=== PATIENT | male | born 1935 | race Caucasian/White ===

== ENCOUNTER 2016-12-03 15:06 | Inpatient (IN) | payer MEDICARE ==
[~2016-12-03] VITALS: Ht 182.9 cm; Wt 66.4 kg
[~2016-12-03 15:06] MED LIST: ASPI325T32 PO; FOLI-49 PO; HYDR-3498 PO; LISI-313 PO; METO-429 PO; PANT40TA4 PO; THIA100T56 PO
[2016-12-03 15:50] VITALS: Ht 182.9 cm; Wt 66.4 kg
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
[2016-12-03] MEDS ORDERED: PIPER-TAZO 3.375 GM IV (PMX) 100 ML IVPB STA (16:43)
[2016-12-03] MEDS ORDERED: VANCOMYCIN 1 GM (PMX) 250 ML IVPB ONE (17:00)
[2016-12-03] MEDS ORDERED: ZOLP5TAB PO (17:08)
[2016-12-03] MEDS ORDERED: ASPI325T4 PO (17:08)
[2016-12-03] MEDS ORDERED: DOCU-144 PO (17:09)
[2016-12-03] MEDS ORDERED: CRAN425C PO (17:11)
[2016-12-03] MEDS ORDERED: DULR PR (17:11)
[2016-12-03] MEDS ORDERED: FER325 PO (17:12)
[2016-12-03] MEDS ORDERED: FLEETPED PR (17:12)
[2016-12-03] MEDS ORDERED: TAMS-14 PO (17:13)
[2016-12-03] MEDS ORDERED: FOLI-49 PO (17:13)
[2016-12-03] MEDS ORDERED: LISI-313 PO (17:15)
[2016-12-03] MEDS ORDERED: METO-429 PO (17:16)
[2016-12-03] MEDS ORDERED: ENOX40DI14 SC (17:16)
[2016-12-03 17:17] LABS: BASOPHILS % 0.5 % (0.0-2.0); EOSINOPHILS # 0.1 10^3/ul (0.0-0.5); EOSINOPHILS % 0.7 % (0.0-7.0); HEMATOCRIT 34.8 % (42.0-52.0); HEMOGLOBIN 11.6 g/dl (14.0-18.0); LYMPHOCYTES # 0.9 10^3/ul (0.8-2.9); LYMPHOCYTES % 12.6 % (15.0-51.0); MEAN CORPUSCULAR HGB CONC 33.3 g/dl (32.0-37.0); MEAN CORPUSCULAR VOLUME 101.9 fl (82.0-101.0); MEAN PLATELET VOLUME 8.3 fl (7.4-10.4); MONOCYTE # 0.7 10^3/ul (0.3-0.9); MONOCYTES % 9.8 % (0.0-11.0); NEUTROPHIL # 5.6 10^3/ul (1.6-7.5); NEUTROPHILS % 76.4 % (39.0-77.0); PLATELET COUNT 179 10^3/UL (140-440); RED BLOOD COUNT 3.41 10^6/ul (4.70-6.10); RED CELL DISTRIBUTION WIDTH 15.6 % (11.5-14.5); UNCORRECTED WBC 7.4 10^3/ul (4.8-10.8); WHITE BLOOD COUNT 7.4 10^3/ul (4.8-10.8)
[2016-12-03] MEDS ORDERED: MAGN400O4 PO (17:17)
[2016-12-03] MEDS ORDERED: MULT-105 PO (17:17)
[2016-12-03] MEDS ORDERED: HYDR-906 PO (17:18)
[2016-12-03] MEDS ORDERED: THIA100T10 PO (17:19)
[2016-12-03] MEDS ORDERED: PANT40TA3 PO (17:19)
[2016-12-03] MEDS ORDERED: ACET325T33 PO (17:20)
[2016-12-03] MEDS ORDERED: TYL500 PO (17:24)
[2016-12-03] MEDS ORDERED: morphine 4 MG/ML VIAL IV STA (17:24)
[2016-12-03 17:25] LABS: ALBUMIN 3.2 g/dl (3.3-4.9); INR 0.97; PROTIME 12.9 Sec (12.2-14.2)
[2016-12-03] MEDS ORDERED: CYAN100080 PO (17:25)
[2016-12-03 17:26] LABS: PARTIAL THROMBOPLASTIN TIME 34.8 Sec (25.0-35.0); POTASSIUM 4.3 mmol/L (3.5-5.1)
[2016-12-03] MEDS ORDERED: ASCO500C7 PO (17:26)
[2016-12-03 17:28] LABS: ALBUMIN/GLOBULIN RATIO 0.86; BILIRUBIN,INDIRECT 0.4 mg/dl (0-1.1); BILIRUBIN,TOTAL 0.4 mg/dl (0.2-1.3); CREATININE 0.8 mg/dl (0.61-1.24); TOTAL PROTEIN 6.9 g/dl (6.1-8.1)
[2016-12-03 17:29] LABS: CALCIUM 8.7 mg/dl (8.4-10.2)
[2016-12-03 17:30] LABS: CONDITION 1; LH ANALYZER COMMENTS 1
[2016-12-03] MEDS ORDERED: SOD CHLORIDE 0.9% 1,000 ML IV ONE (17:30)
--- NOTE | 2016-12-03 18:24 | RADRPT ---
PROCEDURE: XR Elbow. CLINICAL INDICATION: Left elbow pain, infection TECHNIQUE: AP, lateral and oblique views of the left elbow performed. COMPARISON: Radiographs of the left elbow November 06, 2016 FINDINGS: There is wire and cerclage fixation of the proximal ulna. The fracture line appears somewhat more p rominent compared to the previous study. There is diffuse soft tissue swelling identified. There i s a joint effusion. There is no new fracture. IMPRESSION: 1. Extensive posterior soft tissue swelling adjacent to the olecranon fracture which is traversed by nasreen and wire fixation. The previously seen olecranon fracture demonstrates some increased bone reso rption and diastases along the margins, with ongoing infection/osteomyelitis not excluded. RPTAT: UU .Cole Magallanes MD, Date Time Electronically viewed and signed by .Cole Magallanes MD, on 12/03/2016 18:24 .K/
[2016-12-03 22:24] VITALS: PULSE 94; TEMP 98
[2016-12-03 22:51] VITALS: BP 150/91; RESP 20
[2016-12-04] MEDS ORDERED: VANCOMYCIN IV PER PHARMACY XX SCH
[2016-12-04 00:30] VITALS: BP 137/76; RESP 17
[2016-12-04] MEDS: PIPER-TAZO 3.375 GM IV (PMX) 100 ML IVPB SCH ×4 (00:55→17:21)
[2016-12-04 06:01] LABS: BASOPHILS % 0.6 % (0.0-2.0); EOSINOPHILS # 0.1 10^3/ul (0.0-0.5); EOSINOPHILS % 1.9 % (0.0-7.0); HEMATOCRIT 33.2 % (42.0-52.0); HEMOGLOBIN 11.4 g/dl (14.0-18.0); LYMPHOCYTES # 0.9 10^3/ul (0.8-2.9); LYMPHOCYTES % 15.5 % (15.0-51.0); MEAN CORPUSCULAR HEMOGLOBIN 34.4 pg (29.0-33.0); MEAN CORPUSCULAR HGB CONC 34.3 g/dl (32.0-37.0); MEAN CORPUSCULAR VOLUME 100.3 fl (82.0-101.0); MEAN PLATELET VOLUME 8.6 fl (7.4-10.4); MONOCYTE # 0.6 10^3/ul (0.3-0.9); MONOCYTES % 10.9 % (0.0-11.0); NEUTROPHIL # 4.2 10^3/ul (1.6-7.5); NEUTROPHILS % 71.1 % (39.0-77.0); PLATELET COUNT 174 10^3/UL (140-440); RED BLOOD COUNT 3.31 10^6/ul (4.70-6.10); RED CELL DISTRIBUTION WIDTH 15.8 % (11.5-14.5); UNCORRECTED WBC 5.9 10^3/ul (4.8-10.8); WHITE BLOOD COUNT 5.9 10^3/ul (4.8-10.8)
[2016-12-04 06:05] LABS: POTASSIUM 3.9 mmol/L (3.5-5.1)
[2016-12-04 06:06] LABS: CREATININE 0.72 mg/dl (0.61-1.24)
[2016-12-04 06:07] LABS: ALBUMIN/GLOBULIN RATIO 0.88; BILIRUBIN,INDIRECT 0.4 mg/dl (0-1.1); BILIRUBIN,TOTAL 0.4 mg/dl (0.2-1.3); TOTAL PROTEIN 6.4 g/dl (6.1-8.1)
[2016-12-04 06:08] LABS: CALCIUM 8.4 mg/dl (8.4-10.2)
[2016-12-04] MEDS: ACETAMINOPHEN 325 MG TAB PO PRN ×2 (06:50→16:31)
[2016-12-04 06:54] LABS: CONDITION 1; LH ANALYZER COMMENTS 1
[2016-12-04 07:11] VITALS: BP 117/70; RESP 18
[2016-12-04] MEDS: METOPROLOL 50 MG TAB PO SCH ×2 (09:39→20:40)
[2016-12-04] MEDS: LISINOPRIL 5 MG TAB PO SCH ×2 (09:40→20:40)
[2016-12-04] MEDS: VANCOMYCIN 1.25 GM in SOD CHLORIDE 0.9% 250 ML IVPB SCH (09:48)
--- NOTE | 2016-12-04 13:37 | HP ---
Date/Time of Note Date/Time of Note DATE: 12/04/16 TIME: 13:23 Assessment/Plan VTE Prophylaxis VTE Prophylaxis Intervention: other Lines/Catheters IV Catheter Type (from Nrs): Saline Lock Urinary Cath still in place: No Assessment/Plan Assessment/Plan sp left elbow - ORIF Infected hardwire Left elbow fracture HPI/ROS Admit Date/Time Admit Date/Time Dec 03, 2016 at 19:31 Hx of Present Illness eft elbow ORIF surgical site w/ drainage HPI 81 yo M history of multiple medical problems including atrial fibrillation, hypertension, BPH, anemia, ETOH abuse, had left elbow ORIF on 11/06/2016 presents with concern for left elbow infection for the last 5 days. Patient reports noticing increased pain over his left elbow since November 28 2016 , when the anatoliy were removed. However yesterday he reports that he noticed some discharge and per the nursing alert note patient's left upper look more erythematous as well as swollen. There is some report of purulent discharge. Patient transferred for evaluation of the surgical site. Patient denies no new trauma and does not report any fevers or chills. No limitations in his left hand, no numbness tingling or weakness. ROS All systems reviewed and are negative except as per history of present illness. Medications Home Meds Reported Medications Ascorbic Acid* (Vitamin C*) 500 Mg Capsule.sa, 500 MG PO DAILY, CAP 12/03/16 Cyanocobalamin* (Vitamin B-12*) 1,000 Mcg Tablet.sa, 1000 MCG PO DAILY, TAB 12/03/16 Acetaminophen* (Tylenol*) 500 Mg Tab, 1000 MG PO Q4H Y for PAIN 4-6/10, TAB 12/03/16 Acetaminophen* (Tylenol*) 325 Mg Tablet, 650 MG PO Q4H Y for MILD PAIN LEVEL 1-3 , TAB FOR FEVER 100 & ABOVE 12/03/16 Thiamine* (Thiamine*) 100 Mg Tablet, 100 MG PO DAILY, TAB 12/03/16 Pantoprazole* (Protonix*) 40 Mg Tablet.dr, 40 MG PO DAILY, TAB 12/03/16 Multivitamin with Minerals (Multivitamins with Minerals) 1 Each Tablet, 1 EACH PO DAILY, TAB 12/03/16 Magnesium Hydroxide* (Milk Of Magnesia*) 400 Mg/5 Ml Oral.susp, 30 ML PO Q24H Y for PRN, ML 1/14/17 Enoxaparin Sodium* (Lovenox*) 40 Mg/0.4 Ml Syringe, 40 MG SC DAILY, SYR 12/03/16 Metoprolol Tartrate* (Lopressor*) 50 Mg Tab, 50 MG PO BID, #60 TAB HOLD IF SBP BELOW 110 OR HR BELOW 60 12/03/16 Lisinopril* (Lisinopril*) 5 Mg Tablet, 5 MG PO BID, #30 TAB HOLD IF SBP BELOW 110 OR HR BELOW 60 12/03/16 Folic Acid* (Folic Acid*) 1 Mg Tablet, 1 MG PO DAILY, TAB 12/03/16 Tamsulosin Hcl* (Flomax*) 0.4 Mg Cap.er.24h, 0.4 MG PO HS, CAP 12/03/16 Sod Phosphate/Sod Biphosphate* (Fleet* Enema Pediatric) 66.6 Ml Soln, 66.6 ML [place] Q2DAYS Y for CONSTIPATION, ENEMA 12/03/16 Ferrous Sulfate* (Ferrous Sulfate*) 325 Mg Tabec, 325 MG PO DAILY, TAB 12/03/16 Bisacodyl* (Bisacodyl*) 10 Mg Supp, 10 MG [place] Q24H Y for PRN, SUPP 12/03/16 Cranberry Extract (Cranberry) 425 Mg Capsule, 425 MG PO DAILY, CAP 12/03/16 Docusate Sodium* (Colace*) 100 Mg Capsule, 200 MG PO QHS, #60 CAP 12/03/16 Aspirin* (Aspirin*) 325 Mg Tablet, 325 MG PO DAILY, TAB 12/03/16 Zolpidem Tartrate* (Ambien*) 5 Mg Tablet, 5 MG PO QHS Y for INSOMNIA, #30 TAB 12/03/16 Discontinued Reported Medications Hydrocodone/Acetaminophen ([place] 5-325 Tablet) 1 Each Tablet, 1 EACH PO Q3H Y for PAIN 7-910, TAB 12/03/16 Discontinued Scripts Aspirin (Aspir-Jyotsna) 325 Mg Tablet.dr, 325 MG PO DAILY for 7 Days Prov:CAMILLE BRIONES 11/08/16 Thiamine* (Vitamin B-1*) 100 Mg Tablet, 100 MG PO DAILY for 30 Days, TAB Prov:CAMILLE BRIONES 11/08/16 Pantoprazole* (Pantoprazole*) 40 Mg Tablet.dr, 40 MG PO DAILY@06 for 30 Days Prov:PERFECTO BRIONESBIR 11/08/16 Metoprolol Tartrate* (Lopressor*) 50 Mg Tab, 50 MG PO BID for 30 Days, TAB Prov:ANSELMOCAMILLE 11/08/16 Lisinopril* (Lisinopril*) 5 Mg Tablet, 5 MG PO BID for 30 Days, TAB Prov:ANSELMOCAMILLE 11/08/16 Hydrocodone Bit-Acetaminophen (Hydrocodone Bit-APAP) 5-325MG Tablet, 1 TAB PO Q6H Y for PAIN, #20 TAB Prov:PERFECTO BRIONESBIR 11/08/16 Folic Acid* (Folic Acid*) 1 Mg Tablet, 1 MG PO DAILY for 30 Days, TAB Prov:ANSELMOCAMILLE 11/08/16 Allergies Allergies: Coded Allergies: No Known Allergy (Unverified , 12/03/16) PMH/Family/Social Past Medical History PMhx/Soc atrial fibrillation, hypertension, BPH, anemia, EtOH abuse, had left elbow ORIF on 11/06/2016 History of Surgery: Yes (Left leg (2013), ulcer repair (1997), LTHR, ) Anesthesia Reaction: No Hx Neurological Disorder: No Hx Respiratory Disorders: Yes (asthma) Hx Cardiac Disorders: Yes (HTN, CAD, AFIB) Hx Psychiatric Problems: No Hx Miscellaneous Medical Probl: Yes (BPH, UTI,) Hx Alcohol Use: No Hx Substance Use: No Hx Tobacco Use: No Smoking Status: Never smoker FmHx Family History: No coronary disease, No diabetes, No other Social History Smoking Status: Heavy tobacco smoker Exam/Review of Systems Vital Signs Vitals Vital Signs Date Time Temp Pulse Resp B/P Pulse Ox O2 Delivery O2 Flow Rate FiO2 12/04/16 07:11 98.0 110 18 117/70 96 12/04/16 00:30 Room Air Intake and Output 12/03/16 12/03/16 12/04/16 15:00 23:00 07:00 Intake Total 450 ml Output Total 700 ml Balance -250 ml Exam Constitutional: alert, oriented Psych: nl mood/affect ENMT: nl external ears & nose Neck: non-tender Respiratory: clear to auscultation Cardiovascular: nl pulses Gastrointestinal: non-tender, soft Musculoskeletal: other (Extremities: L elbow with + swelling, warmth, erythema over surgical site, steri strips in place, some mild discharge noted over dehisced incision site. no crepitus, no lesions. 1+ radial pulse. ) Extremities: normal pulses Skin: other Lymph: nontender Labs Result Diagram: 12/04/1644112/04/16441 Medications Medications Current Medications Acetaminophen (Tylenol Tab) 650 mg Q6H PRN PO PAIN AND OR ELEVATED TEMP Last administered on 12/04/16 06:50; Admin Dose 650 MG; Start 12/04/16 at 00:00 Tamsulosin HCl (Flomax) 0.4 mg HS PO ; Start 12/04/16 at 21:00 Lisinopril (Zestril) 5 mg BID PO Last administered on 12/04/16 09:40; Admin Dose 5 MG; Start 12/04/16 at 09:00 Metoprolol Tartrate 50 mg 50 mg BID PO Last administered on 12/04/16 09:39; Admin Dose 50 MG; Start 12/04/16 at 09:00 Piperacillin Sod/ Tazobactam Sod 100 ml @ 200 mls/hr Q6 IVPB Last administered on 12/04/16 06:02; Admin Dose 200 MLS/HR; Start 12/04/16 at 00:00 Vancomycin HCl/ Sodium Chloride (Vancocin/NS) 250 ml @ 83.333 mls/ hr Q24H IVPB Last administered on 12/04/16 09:48; Admin Dose 83.333 MLS/HR; Start at 10:00 Procedures Procedures XR L elbow: IMPRESSION: 1. Extensive posterior soft tissue swelling adjacent to the olecranon fracture which is traversed by nasreen and wire fixation. The previously seen olecranon fracture demonstrates some increased bone resorption and diastases along the margins, with ongoing infection/osteomyelitis not excluded. LAB INTERPRETATION: Labs remarkable for elevated ESR and CRP. Mild anemia which is likely chronic. CAMILLE BRIONES Dec 04, 2016 13:34
[2016-12-04 19:54] VITALS: BP 126/72; RESP 20
[2016-12-04] MEDS: TAMSULOSIN (SR) 0.4 MG CAP PO SCH (20:38)
[2016-12-04] MEDS: HYDROCODONE/APAP (5/325) TAB PO PRN (20:39)
[2016-12-05] MEDS: PIPER-TAZO 3.375 GM IV (PMX) 100 ML IVPB SCH ×5 (00:31→23:43)
[2016-12-05] MEDS: ACETAMINOPHEN 325 MG TAB PO PRN (01:07)
[2016-12-05 07:43] VITALS: BP 127/69; RESP 18
[2016-12-05] MEDS: BACITRACIN/POLYMYXIN 28.35 GM OINT TOP SCH ×3 (09:00→21:37)
[2016-12-05] MEDS: METOPROLOL 50 MG TAB PO SCH ×2 (09:13→21:37)
[2016-12-05] MEDS: LISINOPRIL 5 MG TAB PO SCH ×2 (09:13→21:37)
[2016-12-05] MEDS: VANCOMYCIN 1.25 GM in SOD CHLORIDE 0.9% 250 ML IVPB SCH (10:25)
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
--- NOTE | 2016-12-05 14:22 | CONS ---
Date/Time of Note Date/Time of Note DATE: 12/05/16 TIME: 14:22 Assessment/Plan Assessment/Plan Additional Assessment/Plan [id number] Consultation Date/Type/Reason Admit Date/Time Dec 03, 2016 at 19:31 Initial Consult Date Exam/Review of Systems Vital Signs Vitals Vital Signs Date Time Temp Pulse Resp B/P Pulse Ox O2 Delivery O2 Flow Rate FiO2 12/05/16 07:43 98.2 74 18 127/69 95 12/04/16 00:30 Room Air Intake and Output 12/04/16 12/04/16 12/05/16 15:00 23:00 07:00 Intake Total 970 ml 200 ml Output Total 450 ml 800 ml Balance 520 ml -600 ml Results Result Diagram: 12/04/16 0442 12/04/16441 Medications Medications Current Medications Acetaminophen (Tylenol Tab) 650 mg Q6H PRN PO PAIN AND OR ELEVATED TEMP Last administered on 12/05/16 01:07; Admin Dose 650 MG; Start 12/04/16 at 00:00 Tamsulosin HCl (Flomax) 0.4 mg HS PO Last administered on 12/04/16 20:38; Admin Dose 0.4 MG; Start 12/04/16 at 21:00 Lisinopril (Zestril) 5 mg BID PO Last administered on 12/05/16 09:13; Admin Dose 5 MG; Start 12/04/16 at 09:00 Metoprolol Tartrate 50 mg 50 mg BID PO Last administered on 12/05/16 09:13; Admin Dose 50 MG; Start 12/04/16 at 09:00 Piperacillin Sod/ Tazobactam Sod 100 ml @ 200 mls/hr Q6 IVPB Last administered on 12/05/16 12:30; Admin Dose 200 MLS/HR; Start 12/04/16 at 00:00 Vancomycin HCl/ Sodium Chloride (Vancocin/NS) 250 ml @ 83.333 mls/ hr Q24H IVPB Last administered on 12/05/16 10:25; Admin Dose 83.333 MLS/HR; Start at 10:00 Acetaminophen/ Hydrocodone Bitart ([place] (5/325)) 1 tab BID PRN PO PAIN Last administered on 12/04/16 20:39; Admin Dose 1 TAB; Start 12/04/16 at 20:30 Bacitracin/ Polymyxin B Sulfate (Polysporin Oint) 1 applic BID TOP Last administered on 12/05/16t 12:31; Admin Dose 1 APPLIC; Start 12/05/16 at 09:00 JETT JOSEPH MD Dec 05, 2016 14:22
--- NOTE | 2016-12-05 14:56 | CONS ---
DATE OF ADMISSION: 12/03/2016 DATE OF CONSULTATION: 12/05/2016 REASON FOR CONSULTATION: Antibiotic recommendations, infected elbow. CONSULTING PHYSICIAN: Dr. Thomason. HISTORY OF PRESENT ILLNESS: This is an unfortunate 81-year-old male with past medical history of at rial fibrillation, hypertension, BPH, anemia and alcohol abuse, apparently who had a left elbow ORIF on 11/06/2016 who presents with new onset drainage from the wound over the last several days. He h as been noted to have increasing erythema and swelling and has been started on broad spectrum antibi otics including vancomycin and Zosyn and is here for continued evaluation and followup. PAST MEDICAL HISTORY: As stated above. MEDICATIONS: 1. Vancomycin. 2. Zosyn. The rest of the medications are noted and reviewed. PHYSICAL EXAMINATION: VITAL SIGNS: He is afebrile, vital signs stable. I am awaiting patient's returned from the bathroom to further evaluate the wounds. I have asked the nurses to shortly. I will be updating the consultation shortly thereafter. IMAGING STUDIES: Reviewed elbow x-ray shows extensive posterior soft tissue swelling adjacent to th e olecranon fracture with transverse by nasreen and wire fixation. The previously seen olecranon fractu re demonstrates some increased bone resorption and diaphysis along the margins with ongoing infectio n osteomyelitis. MICROBIOLOGY STUDIES: So far, the gram stain and wound culture too young to evaluate. ASSESSMENT: Probable soft tissue infection concerning for infection including osteomyelitis m ust be entertained. RECOMMENDATIONS: 1. Continue current antibiotics. 2. Follow cultures. 3. MRSA screen and a procalcitonin, blood cultures. 4. Wound care. 5. Further evaluation to follow shortly. I will continue to follow this patient closely with you. Consideration of CT for abscess should be entertained as well. Dictated By: JETT JOSEPH MD /NTS Conf#: [id number] DID#: [id number]
--- NOTE | 2016-12-05 18:23 | PN ---
Date/Time of Note Date/Time of Note DATE: 12/05/16 TIME: 18:16 Assessment/Plan VTE Prophylaxis VTE Prophylaxis Intervention: LMWH Lines/Catheters IV [facility] (from [facility] Saline Lock Urinary Cath still in place: No Assessment/Plan Chief Complaint/Hosp Course Assessment and plan -Soft tissue infection of the left elbow with possible osteomyelitis and infected hardware. Dr. Zapata is following infection disease consultation. Continue antibiotics local care -Status post ORIF of left elbow fracture by Dr. Olmos 1 month ago. Patient is followed by Dr. Claire in orthopedic consultation -Hypertension. Continue lisinopril and metoprolol. History of EtOH abuse Continue Lovenox for deep venous thrombosis prophylaxis. Further recommendations based on clinical course Plan of care discussed with Dr. Ramirez Problems: Subjective 24 Hr Interval Summary Free Text/Dictation Patient denies any fever nausea vomiting, continues to have mild drainage from left elbow surgical incision. 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 (Left elbow surgical incision with drainage) Results Result Diagram: 12/04/162 12/04/16 0442 Medications Medications Current Medications Acetaminophen (Tylenol Tab) 650 mg Q6H PRN PO PAIN AND OR ELEVATED TEMP Last administered on 12/05/16 01:07; Admin Dose 650 MG; Start 12/04/16 at 00:00 Tamsulosin HCl (Flomax) 0.4 mg HS PO Last administered on 12/04/16 20:38; Admin Dose 0.4 MG; Start 12/04/16 at 21:00 Lisinopril (Zestril) 5 mg BID PO Last administered on 12/05/16 09:13; Admin Dose 5 MG; Start 12/04/16 at 09:00 Metoprolol Tartrate 50 mg 50 mg BID PO Last administered on 12/05/16 09:13; Admin Dose 50 MG; Start 12/04/16 at 09:00 Piperacillin Sod/ Tazobactam Sod 100 ml @ 200 mls/hr Q6 IVPB Last administered on 12/05/16 17:55; Admin Dose 200 MLS/HR; Start 12/04/16 at 00:00 Vancomycin HCl/ Sodium Chloride (Vancocin/NS) 250 ml @ 83.333 mls/ hr Q24H IVPB Last administered on 12/05/16 10:25; Admin Dose 83.333 MLS/HR; Start at 10:00 Acetaminophen/ Hydrocodone Bitart ([place] (5/325)) 1 tab BID PRN PO PAIN Last administered on 12/04/16 20:39; Admin Dose 1 TAB; Start 12/04/16 at 20:30 Bacitracin/ Polymyxin B Sulfate (Polysporin Oint) 1 applic BID TOP Last administered on 12/05/16 12:31; Admin Dose 1 APPLIC; Start 12/05/16 at 09:00 Miscellaneous Information (*Rx Drug Level Order Reminder*) VANCOMCYIN TROUGH AT 0900 ONCE ONCE XX ; Start 12/06/16 at 09:00; Stop 12/06/16 at 09:01 RUBEN TRAVIS Dec 05, 2016 18:23
[2016-12-05 19:40] VITALS: BP 133/71; RESP 20
[2016-12-05] MEDS: TAMSULOSIN (SR) 0.4 MG CAP PO SCH (21:36)
[2016-12-05] MEDS: HYDROCODONE/APAP (5/325) TAB PO PRN (21:42)
[2016-12-06] MEDS: ACETAMINOPHEN 325 MG TAB PO PRN (05:15)
[2016-12-06] MEDS: PIPER-TAZO 3.375 GM IV (PMX) 100 ML IVPB SCH ×4 (05:55→23:36)
--- NOTE | 2016-12-06 07:02 | RADRPT ---
PROCEDURE: CT left elbow without contrast CLINICAL INDICATION: Status post left elbow surgical incision. Rule out abscess. TECHNIQUE: Axial imaging was obtained of the left elbow without contrast administration using a mult i-slice CT scanner. Standard CT scan left elbow without contrast protocols were performed. The CTDI vol is 40.5 mGy and the DLP is 1360.6 mGycm. COMPARISON: Left elbow series 12/03/2016. FINDINGS: There are 2 fixation rods extending through the proximal left ulna with cerclage wires. Fixation is in good position and uninterrupted stabilizing a healing nondisplaced left proximal ulnar fracture is interarticular. There is no evidence of surgical drain. There is subcutaneous soft tissue swelli ng predominately along the posterior aspect of the distal left forearm, elbow and proximal forearm w ithout localized fluid collection to suggest abscess. The muscles appear unremarkable. No evidence of a joint effusion. IMPRESSION: 1. Uninterrupted fixation stabilizing a healing nondisplaced left proximal ulnar fracture with inte rarticular extension. 2. Soft tissue swelling but no evidence of abscess. 3. No evidence of a joint effusion. RPTAT:AAJJ Physician Cintia Date Time Electronically viewed and signed by Physician Cintia on 12/06/2016 07:02 /
[2016-12-06 07:45] LABS: CREATININE 0.87 mg/dl (0.61-1.24)
[2016-12-06 07:53] VITALS: BP 120/69; RESP 18
[2016-12-06 08:11] VITALS: BP 156/72; RESP 18
[2016-12-06] MEDS: LISINOPRIL 5 MG TAB PO SCH ×2 (08:42→20:02)
[2016-12-06] MEDS: METOPROLOL 50 MG TAB PO SCH ×2 (08:42→20:02)
[2016-12-06] MEDS: BACITRACIN/POLYMYXIN 28.35 GM OINT TOP SCH ×2 (08:42→20:02)
[2016-12-06] MEDS: ENOXAPARIN 30 MG/0.3 ML SYG SC SCH (08:44)
[2016-12-06] MEDS: VANCOMYCIN 1.25 GM in SOD CHLORIDE 0.9% 250 ML IVPB SCH (10:56)
--- NOTE | 2016-12-06 14:33 | PN ---
Date/Time of Note Date/Time of Note DATE: 12/06/16 TIME: 14:31 Assessment/Plan VTE Prophylaxis VTE Prophylaxis Intervention: LMWH Lines/Catheters IV C[facility] Type (from [facility] Saline Lock Urinary Cath still in place: No Assessment/Plan Chief Complaint/Hosp Course Assessment and plan -Soft tissue infection of the left elbow with possible osteomyelitis and infected hardware. Dr. Zapata is following infection disease consultation. Continue antibiotics, local care. CT is negative for abscess. -Status post ORIF of left elbow fracture by Dr. Olmos 1 month ago. Patient is followed by Dr. Claire in orthopedic consultation -Hypertension. Continue lisinopril and metoprolol. -History of EtOH abuse Continue Lovenox for deep venous thrombosis prophylaxis. Further recommendations based on clinical course Plan of care discussed with Dr. Powell Problems: Subjective 24 Hr Interval Summary Free Text/Dictation Patient continues to have moderate amount of drainage from incision, denies fever chills denies nausea vomiting. 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 surgical 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 with drainage) Results Result Diagram: 12/04/16 0442 12/06/16 0435 Results 24 hrs Laboratory Tests Test 12/06/16 04:35 12/06/16 09:10 Blood Urea Nitrogen 13 Creatinine 0.87 Vancomycin Level Trough 9.2 L Medications Medications Current Medications Acetaminophen (Tylenol Tab) 650 mg Q6H PRN PO PAIN AND OR ELEVATED TEMP Last administered on 12/06/16 05:15; Admin Dose 650 MG; Start 12/04/16 at 00:00 Tamsulosin HCl (Flomax) 0.4 mg HS PO Last administered on 12/05/16 21:36; Admin Dose 0.4 MG; Start 12/04/16 at 21:00 Lisinopril (Zestril) 5 mg BID PO Last administered on 12/06/16 08:42; Admin Dose 5 MG; Start 12/04/16 at 09:00 Metoprolol Tartrate 50 mg 50 mg BID PO Last administered on 12/06/16 08:42; Admin Dose 50 MG; Start 12/04/16 at 09:00 Piperacillin Sod/ Tazobactam Sod (Zosyn 3.375gm/ 100 ml (Pmx)) 100 ml @ 200 mls /hr Q6 IVPB Last administered on 12/06/16 05:55; Admin Dose 200 MLS/HR; Start 12/04/16 at 00:00 Acetaminophen/ Hydrocodone Bitart ([place] (5/325)) 1 tab BID PRN PO PAIN Last administered on 12/05/16 21:42; Admin Dose 1 TAB; Start 12/04/16 at 20:30 Bacitracin/ Polymyxin B Sulfate (Polysporin Oint) 1 applic BID TOP Last administered on 12/06/16 08:42; Admin Dose 1 APPLIC; Start 12/05/16 at 09:00 Enoxaparin Sodium 30 mg 30 mg DAILY SC Last administered on 12/06/16 08:44; Admin Dose 30 MG; Start 12/06/16 at 09:00 Vancomycin HCl/ Sodium Chloride (Vancocin/NS) 150 ml @ 75 mls/hr Q12H IVPB ; Start 12/07/16 at 05:00 RUBEN TRAVIS Dec 06, 2016 14:33
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
[2016-12-06 19:22] VITALS: BP 127/68; RESP 20
[2016-12-06] MEDS: HYDROCODONE/APAP (5/325) TAB PO PRN (19:32)
[2016-12-06] MEDS: TAMSULOSIN (SR) 0.4 MG CAP PO SCH (20:01)
[2016-12-07] MEDS: ACETAMINOPHEN 325 MG TAB PO PRN (00:28)
[2016-12-07] MEDS: PIPER-TAZO 3.375 GM IV (PMX) 100 ML IVPB SCH (05:03)
[2016-12-07 05:27] LABS: BASOPHILS % 0.4 % (0.0-2.0); EOSINOPHILS # 0.2 10^3/ul (0.0-0.5); HEMATOCRIT 30.9 % (42.0-52.0); HEMOGLOBIN 10.5 g/dl (14.0-18.0); LYMPHOCYTES # 1.4 10^3/ul (0.8-2.9); MEAN CORPUSCULAR HEMOGLOBIN 34.2 pg (29.0-33.0); MEAN CORPUSCULAR HGB CONC 33.8 g/dl (32.0-37.0); MEAN CORPUSCULAR VOLUME 101.2 fl (82.0-101.0); MEAN PLATELET VOLUME 7.9 fl (7.4-10.4); MONOCYTE # 0.5 10^3/ul (0.3-0.9); MONOCYTES % 10.9 % (0.0-11.0); NEUTROPHIL # 2.8 10^3/ul (1.6-7.5); NEUTROPHILS % 56.7 % (39.0-77.0); PLATELET COUNT 190 10^3/UL (140-440); RED BLOOD COUNT 3.05 10^6/ul (4.70-6.10); RED CELL DISTRIBUTION WIDTH 15.6 % (11.5-14.5)
[2016-12-07] MEDS: VANCOMYCIN 750 MG in SOD CHLORIDE 0.9% 150 ML IVPB SCH ×2 (05:36→17:49)
[2016-12-07 05:56] LABS: CONDITION 1; LH ANALYZER COMMENTS 1
[2016-12-07 06:02] LABS: POTASSIUM 3.9 mmol/L (3.5-5.1)
[2016-12-07 06:04] LABS: CREATININE 0.87 mg/dl (0.61-1.24)
[2016-12-07 06:05] LABS: CALCIUM 8.4 mg/dl (8.4-10.2)
[2016-12-07 07:00] VITALS: BP 145/80; RESP 18
[2016-12-07] MEDS: BACITRACIN/POLYMYXIN 28.35 GM OINT TOP SCH ×2 (08:10→20:24)
[2016-12-07] MEDS: HYDROCODONE/APAP (5/325) TAB PO PRN ×2 (08:10→20:24)
[2016-12-07] MEDS: LISINOPRIL 5 MG TAB PO SCH ×2 (08:10→21:00)
[2016-12-07] MEDS: METOPROLOL 50 MG TAB PO SCH ×2 (08:11→21:00)
[2016-12-07] MEDS: ENOXAPARIN 30 MG/0.3 ML SYG SC SCH (08:16)
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
[2016-12-07] MEDS ORDERED: LIDOCAINE 1% (MDV) 20 ML INJ SC ONE (15:00)
--- NOTE | 2016-12-07 15:34 | PN ---
Date/Time of Note Date/Time of Note DATE: 12/07/16 TIME: 15:31 Assessment/Plan VTE Prophylaxis VTE Prophylaxis Intervention: LMWH Lines/Catheters IV Catheter Type (from [facility]): Saline Lock Urinary Cath still in place: No Assessment/Plan Chief Complaint/Hosp Course Assessment and plan -Soft tissue infection of the left elbow with possible osteomyelitis and infected hardware. Dr. Zapata is following infection disease consultation. Continue antibiotics, local care. CT is negative for abscess. -Status post ORIF of left elbow fracture by Dr. Olmos 1 month ago. Patient is followed by Dr. Claire in orthopedic consultation -Hypertension. Continue lisinopril and metoprolol. -History of ETOH abuse -Tobacco dependence Insert PICC line for long-term antibiotics. Plan of care discussed with patient Continue Lovenox for deep venous thrombosis prophylaxis. Further recommendations based on clinical course Plan of care discussed with Dr. Powell Problems: Subjective 24 Hr Interval Summary Free Text/Dictation Patient denies nausea vomiting denies fevers, agreed to PICC line insertion. 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 (Left elbow surgical incision with drainage) Results Result Diagram: 12/07/16 0423 12/07/16 0423 Results 24 hrs Laboratory Tests Test 12/07/16 04:23 Anion Gap 13 Basophils # 0.0 Basophils % 0.4 Blood Morphology Comment Blood Urea Nitrogen 13 Calcium Level 8.4 Carbon Dioxide Level 27 Chloride Level 106 Creatinine 0.87 Eosinophils # 0.2 Eosinophils % 3.0 Glucose Level 89 Hematocrit 30.9 L Hemoglobin 10.5 L Lymphocytes # 1.4 Lymphocytes % 29.0 Mean Corpuscular Hemoglobin 34.2 H Mean Corpuscular Hemoglobin Concent 33.8 Mean Corpuscular Volume 101.2 H Mean Platelet Volume 7.9 Monocytes # 0.5 Monocytes % 10.9 Neutrophils # 2.8 Neutrophils % 56.7 Nucleated Red Blood Cells # 0.0 Nucleated Red Blood Cells % 0.0 Platelet Count 190 Potassium Level 3.9 Red Blood Count 3.05 L Red Cell Distribution Width 15.6 H Sodium Level 142 White Blood Count 5.0 Medications Medications Current Medications Acetaminophen (Tylenol Tab) 650 mg Q6H PRN PO PAIN AND OR ELEVATED TEMP Last administered on 12/07/16 00:28; Admin Dose 650 MG; Start 12/04/16 at 00:00 Tamsulosin HCl (Flomax) 0.4 mg HS PO Last administered on 12/06/16 20:01; Admin Dose 0.4 MG; Start 12/04/16 at 21:00 Lisinopril (Zestril) 5 mg BID PO Last administered on 12/07/16 08:10; Admin Dose 5 MG; Start 12/04/16 at 09:00 Metoprolol Tartrate (Lopressor) 50 mg BID PO Last administered on 12/07/16 08: 11; Admin Dose 50 MG; Start 12/04/16 at 09:00 Acetaminophen/ Hydrocodone Bitart ([place] (5/325)) 1 tab BID PRN PO PAIN Last administered on 12/07/16 08:10; Admin Dose 1 TAB; Start 12/04/16 at 20:30 Bacitracin/ Polymyxin B Sulfate (Polysporin Oint) 1 applic BID TOP Last administered on 12/07/16 08:10; Admin Dose 1 APPLIC; Start 12/05/16 at 09:00 Enoxaparin Sodium 30 mg 30 mg DAILY SC Last administered on 12/07/16 08:16; Admin Dose 30 MG; Start 12/06/16 at 09:00 Vancomycin HCl/ Sodium Chloride (Vancocin/NS) 150 ml @ 75 mls/hr Q12H IVPB Last administered on 12/07/16 05:36; Admin Dose 75 MLS/HR; Start 12/07/16 at 05 :00 RUBEN TRAVIS Dec 07, 2016 15:34
--- NOTE | 2016-12-07 17:26 | RADRPT ---
PROCEDURE: XR Chest. CLINICAL INDICATION: Check PICC line position. TECHNIQUE: Single frontal view. COMPARISON: 11/04/2016. FINDINGS: There is a right arm PICC line with the tip in the lower superior vena cava. The lungs are clear. The heart size is normal. There is calcification in the aorta consistent with atherosclerosis. There is no pleural effusion. There is no pneumothorax. IMPRESSION: 1. Satisfactory position of right arm PICC line. 2. Atherosclerosis. 3. Otherwise unremarkable chest radiograph. RPTAT: QQ .Moris Vivas MD, MD Date Time Electronically viewed and signed by .Moris Vivas MD, MD on 12/07/2016 17:26 .R/
[2016-12-07 19:24] VITALS: BP 111/62; RESP 19
[2016-12-07] MEDS: TAMSULOSIN (SR) 0.4 MG CAP PO SCH (20:24)
--- NOTE | 2016-12-07 21:30 | RADRPT ---
PROCEDURE: US guidance for PICC line CLINICAL INDICATION: PICC line placement TECHNIQUE: Multiple real-time images were acquired of the patient's arm utilizing a high resolutio n transducer. This was performed by the PICC line nurse for venous access. COMPARISON: None FINDINGS: Ultrasound guidance for PICC line placement. IMPRESSION: Ultrasound guidance for PICC line placement. RPTAT: AA .Valente Ortiz MD, MD Date Time Electronically viewed and signed by .Valente Ortiz MD, on 12/07/2016 21:30 .S/
[2016-12-08] MEDS: VANCOMYCIN 750 MG in SOD CHLORIDE 0.9% 150 ML IVPB SCH ×2 (05:05→17:55)
[2016-12-08 07:43] VITALS: BP 146/70; RESP 18
[2016-12-08] MEDS: METOPROLOL 50 MG TAB PO SCH ×2 (08:51→20:12)
[2016-12-08] MEDS: BACITRACIN/POLYMYXIN 28.35 GM OINT TOP SCH ×2 (08:51→20:13)
[2016-12-08] MEDS: LISINOPRIL 5 MG TAB PO SCH ×2 (08:51→20:12)
[2016-12-08] MEDS: ENOXAPARIN 30 MG/0.3 ML SYG SC SCH (08:58)
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
--- NOTE | 2016-12-08 16:55 | PN ---
Date/Time of Note Date/Time of Note DATE: 12/08/16 TIME: 16:53 Assessment/Plan VTE Prophylaxis VTE Prophylaxis Intervention: other Lines/Catheters IV C[facility]ter Type (from [facility]): PICC Line Urinary Cath still in place: No Assessment/Plan Assessment/Plan -Soft tissue infection of the left elbow with possible osteomyelitis and infected hardware. Dr. Zapata is following infection disease consultation. Continue antibiotics, local care. CT is negative for abscess. -Status post ORIF of left elbow fracture by Dr. Olmos 1 month ago. Patient is followed by Dr. Claire in orthopedic consultation -Hypertension. Continue lisinopril and metoprolol. -History of ETOH abuse -Tobacco dependence Insert PICC line for long-term antibiotics. Plan of care discussed with patient Continue Lovenox for deep venous thrombosis prophylaxis. Further recommendations based on clinical course Plan of care discussed with Dr. Powell Exam/Review of Systems Vital Signs Vitals Vital Signs Date Time Temp Pulse Resp B/P Pulse Ox O2 Delivery O2 Flow Rate FiO2 12/08/16 07:43 98.1 85 18 146/70 99 Intake and Output 12/07/16 12/07/16 12/08/16 15:00 23:00 07:00 Intake Total 150 ml 1230 ml 360 ml Output Total 850 ml Balance 150 ml 1230 ml -490 ml Exam Constitutional: alert, oriented Psych: nl mood/affect Eyes: PERRL, nl sclera ENMT: nl external ears & nose Neck: non-tender Respiratory: clear to auscultation Cardiovascular: nl pulses Gastrointestinal: non-tender, soft Musculoskeletal: other (left ) Extremities: normal pulses Neurological: nl mental status, nl speech Skin: other Lymph: nontender Results Result Diagram: 12/07/16 0423 12/07/16 042 Medications Medications Current Medications Acetaminophen (Tylenol Tab) 650 mg Q6H PRN PO PAIN AND OR ELEVATED TEMP Last administered on 12/07/16 00:28; Admin Dose 650 MG; Start 12/04/16 at 00:00 Tamsulosin HCl (Flomax) 0.4 mg HS PO Last administered on 12/07/16 20:24; Admin Dose 0.4 MG; Start 12/04/16 at 21:00 Lisinopril (Zestril) 5 mg BID PO Last administered on 12/08/16 08:51; Admin Dose 5 MG; Start 12/04/16 at 09:00 Metoprolol Tartrate (Lopressor) 50 mg BID PO Last administered on 12/08/16 08: 51; Admin Dose 50 MG; Start 12/04/16 at 09:00 Acetaminophen/ Hydrocodone Bitart ([place] (5/325)) 1 tab BID PRN PO PAIN Last administered on 12/07/16 20:24; Admin Dose 1 TAB; Start 12/04/16 at 20:30 Bacitracin/ Polymyxin B Sulfate (Polysporin Oint) 1 applic BID TOP Last administered on 12/08/16 08:51; Admin Dose 1 APPLIC; Start 12/05/16 at 09:00 Enoxaparin Sodium 30 mg 30 mg DAILY SC Last administered on 12/08/16 08:58; Admin Dose 30 MG; Start 12/06/16 at 09:00 Vancomycin HCl/ Sodium Chloride (Vancocin/NS) 150 ml @ 75 mls/hr Q12H IVPB Last administered on 12/08/16 05:05; Admin Dose 75 MLS/HR; Start 12/07/16 at 05 :00 IV Flush (NS 10 ml) 10 ml PRN PRN IV FLUSH LINE; Start 12/07/16 at 17:30 CAMILLE BRIONES Dec 08, 2016 16:55
[2016-12-08 19:26] VITALS: BP 122/72; RESP 18
[2016-12-08] MEDS: HYDROCODONE/APAP (5/325) TAB PO PRN (19:47)
[2016-12-08] MEDS: TAMSULOSIN (SR) 0.4 MG CAP PO SCH (20:12)
[2016-12-09] MEDS: HYDROCODONE/APAP (5/325) TAB PO PRN (04:05)
[2016-12-09] MEDS ORDERED: VANCOMYCIN 0.85 GM in SOD CHLORIDE 0.9% 250 ML IVPB SCH (05:00)
[2016-12-09 05:36] LABS: BASOPHILS % 0.7 % (0.0-2.0); EOSINOPHILS # 0.2 10^3/ul (0.0-0.5); EOSINOPHILS % 3.1 % (0.0-7.0); HEMATOCRIT 29.9 % (42.0-52.0); HEMOGLOBIN 10.1 g/dl (14.0-18.0); LYMPHOCYTES # 1.4 10^3/ul (0.8-2.9); LYMPHOCYTES % 25.3 % (15.0-51.0); MEAN CORPUSCULAR HEMOGLOBIN 34.1 pg (29.0-33.0); MEAN CORPUSCULAR HGB CONC 33.9 g/dl (32.0-37.0); MEAN CORPUSCULAR VOLUME 100.5 fl (82.0-101.0); MEAN PLATELET VOLUME 7.6 fl (7.4-10.4); MONOCYTE # 0.5 10^3/ul (0.3-0.9); MONOCYTES % 9.4 % (0.0-11.0); NEUTROPHIL # 3.5 10^3/ul (1.6-7.5); NEUTROPHILS % 61.5 % (39.0-77.0); PLATELET COUNT 192 10^3/UL (140-440); RED BLOOD COUNT 2.98 10^6/ul (4.70-6.10); RED CELL DISTRIBUTION WIDTH 15.6 % (11.5-14.5); UNCORRECTED WBC 5.7 10^3/ul (4.8-10.8); WHITE BLOOD COUNT 5.7 10^3/ul (4.8-10.8)
[2016-12-09 05:54] LABS: POTASSIUM 3.8 mmol/L (3.5-5.1)
[2016-12-09 05:56] LABS: CREATININE 0.77 mg/dl (0.61-1.24)
[2016-12-09 05:57] LABS: CALCIUM 8.4 mg/dl (8.4-10.2)
[2016-12-09 06:38] LABS: CONDITION 1; LH ANALYZER COMMENTS 1
[2016-12-09 07:34] VITALS: BP 146/85; RESP 20
[2016-12-09] MEDS: METOPROLOL 50 MG TAB PO SCH (08:27)
[2016-12-09] MEDS: ACETAMINOPHEN 325 MG TAB PO PRN (08:27)
[2016-12-09] MEDS: LISINOPRIL 5 MG TAB PO SCH (08:28)
[2016-12-09] MEDS: BACITRACIN/POLYMYXIN 28.35 GM OINT TOP SCH (08:28)
[2016-12-09] MEDS: ENOXAPARIN 30 MG/0.3 ML SYG SC SCH (08:31)
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
== END 2016-12-09 17:55 | DRG 863 ==
LOC: E/R 15:06 → MS1 19:31
PROVIDERS: ADMIT Internal Medicine; ATTEND Internal Medicine
PROC: 02HV33Z Insertion of Infusion Device into Superior Vena Cava, Percutaneous Approach (ICD-10-PCS; principal; 2016-12-05)
DX: T81.4XXA Infection following a procedure, initial encounter (principal); I48.91 Unspecified atrial fibrillation; B95.7 Other staphylococcus as the cause of diseases classified elsewhere; L08.89 Other specified local infections of the skin and subcutaneous tissue; I25.10 Atherosclerotic heart disease of native coronary artery without angina pectoris; I10 Essential (primary) hypertension; N40.0 Benign prostatic hyperplasia without lower urinary tract symptoms; R70.0 Elevated erythrocyte sedimentation rate; Y83.8 Other surgical procedures as the cause of abnormal reaction of the patient, or of later complication, without mention of misadventure at the time of the procedure; S52.035D Nondisplaced fracture of olecranon process with intraarticular extension of left ulna, subsequent encounter for closed fracture with routine healing; V00-Y99 External causes of morbidity; Z72.0 Tobacco use; Z86.59 Personal history of other mental and behavioral disorders; Z79.01 Long term (current) use of anticoagulants; Z79.82 Long term (current) use of aspirin
CPT/HCPCS: 36569; 71010; 73200; 76937; 80048; 80053; 80202; 82565; 83605; 84145; 84520; 85025; 85610; 85651; 85730; 86140; 86850; 86870; 86900; 86901; 87040; 87070; 87081; 96374; 96375; J1650; J2270; J2543; J3370; J7030; J7050

== ENCOUNTER 2018-03-30 15:16 | Inpatient (IN) | END 2018-03-31 12:10 | disposition left against medical advice (07) | DRG 191 ==